=== PATIENT | female | born 1995 | race Caucasian/White ===

== ENCOUNTER 2017-02-04 14:17 | Emergency (ER) | payer OTHER ==
[~2017-02-04] VITALS: Ht 165.1 cm; Wt 99.3 kg
[2017-02-04] MEDS ORDERED: TYLE325T5 PO (14:23)
[2017-02-04] MEDS ORDERED: BUTA1CAP4 PO (14:24)
[2017-02-04] MEDS ORDERED: METOCLOPRAMIDE INJ 10MG/2ML VIAL (J2765) IV ONE (15:00)
[2017-02-04] MEDS ORDERED: NS 1,000 ML IV ONE (15:00)
[2017-02-04] MEDS ORDERED: diphenhydrAMINE INJ 50MG/ML VIAL (J1200) IV ONE (15:00)
[2017-02-04 15:34] LABS: BASO # 0.1 K/mm3 (0.0-0.2); BASO % 0.4 % (0.0-1.0); EOS # 0.4 K/mm3 (0.0-0.50); EOS % 2.4 % (0.0-3.0); LARGE UNSTAINED CELL # 0.1 K/mm3 (0.0-0.4); LARGE UNSTAINED CELL % 0.5 % (0.0-4.0); LYMPH # 1.5 K/mm3 (1.5-6.5); LYMPH % 10.1 % (24.0-44.0); MEAN CORPUSCULAR HEMOGLOBIN 30.4 pg (27.0-33.0); MONO # 0.4 K/mm3 (0.0-0.8); NEUTROPHILS # 12.2 K/mm3 (1.8-7.7); NEUTROPHILS % 83.6 % (36.0-66.0); PLATELET COUNT, AUTOMATED 321 k/mm3 (150-450); WHITE BLOOD COUNT 14.6 K/mm3 (4.0-10.0)
[2017-02-04 15:55] LABS: ALBUMIN 3.2 GM/DL (3.2-5.2); ALBUMIN/GLOBULIN RATIO 0.71 (1.00-1.93); ALKALINE PHOSPHATASE 89 U/L (45-117); ALT/SGPT 30 U/L (12-78); ANION GAP 8 MEQ/L (8-16); AST/SGOT 17 U/L (15-37); BILIRUBIN,DIRECT < 0.1 MG/DL (0.0-0.2); BILIRUBIN,TOTAL 0.4 MG/DL (0.2-1.0); BLOOD UREA NITROGEN 6 MG/DL (7-18); CALCIUM LEVEL 9.3 MG/DL (8.5-10.1); CARBON DIOXIDE LEVEL 24 MEQ/L (21-32); CHLORIDE LEVEL 107 MEQ/L (98-107); CREATININE FOR GFR 0.48 MG/DL (0.55-1.02); GLOMERULAR FILTRATION RATE > 60.0 (>60); GLUCOSE, FASTING 92 MG/DL (70-105); POTASSIUM SERUM 3.4 MEQ/L (3.5-5.1); SODIUM LEVEL 139 MEQ/L (136-145); TOTAL PROTEIN 7.7 GM/DL (6.4-8.2)
[2017-02-04 16:49] VITALS: BP 115/65
== END 2017-02-04 17:04 | disposition home or self-care (01) ==
LOC: M ED 15:51
DX: O99.352 Diseases of the nervous system complicating pregnancy, second trimester (principal); G43.909 Migraine, unspecified, not intractable, without status migrainosus; G93.2 Benign intracranial hypertension; Z3A.16 16 weeks gestation of pregnancy
CPT/HCPCS: 80048; 80076; 85025; 86140; 96374; 96375; 99283; J1200; J2765

== ENCOUNTER → 2017-03-07 | Outpatient (CLI) | payer OTHER ==
[~2017-03-07] MED LIST: ACET50TA PO; ANUS2.5C2 TOP; BUTA1CAP4 PO; COLA100C5 PO; DIBU1OIN TOP; IBUP-1114 PO; LIDOCAINE 1% SDV INJ 30 ML VIAL As Ordered ONE; MOM30SS PO; PRENTAB9 PO; TYLE325T5 PO; diphenhydrAMINE INJ 50MG/ML VIAL (J1200) As Ordered ONE; fentaNYL 100 MCG/2 ML INJECTION (J3010) As Ordered ONE
[2017-03-07 17:48] LABS: GLUCOSE CSF 43 MG/DL (40-75)
[2017-03-07 18:01] LABS: RBC CSF AUTO 1 /mm3 (0-0); WBC CSF AUTO 1 /mm3 (0-10)
[2017-03-07 18:07] LABS: APPEARANCE, CSF CLEAR (CLEAR); COLOR, CSF COLORLESS (COLORLESS); CSF DIFF IF INDICATED? NO (NO); CSF TUBE# CELL CNT TUBE 3
[2017-03-07 18:08] LABS: CSF DILUENT LOT # 6221
[2017-03-08 08:16] LABS: CSF H. INFLUENZA NEGATIVE (NEGATIVE); CSF N MENINGITIDIS ACYW135 NEGATIVE (NEGATIVE); CSF STREP PNUEMO NEGATIVE (NEGATIVE)
[2017-03-08 08:17] LABS: CSF GROUP B STREP NEGATIVE (NEGATIVE)
--- NOTE | 2017-03-22 00:57 | ECWPNPC ---
PATIENT NAME: GABRIELA HEADLEY : 1995 GENDER: FEMALE VISIT DATE: 03/07/2017 DISCHARGE DATE: 03/07/17 1426 VISIT LOCKED DATE TIME: PHYSICIAN: ERIC ZHANG RESOURCE: ERIC ZHANG REASON FOR APPOINTMENT 1. SPINAL TAP PSEUDO TUMOR CURRENT MEDICATIONS NONE ASSESSMENTS PSEUDOTUMOR CEREBRI. TREATMENT OTHERS CLINICAL NOTES: SPINAL TAP - PLEASE SEE MEDITECH. DISPOSITION & COMMUNICATION FOLLOW UP CALL NEEDED F/UP WITH NEUROLOGIST ELECTRONICALLY SIGNED BY ERIC ZHANG MD ON 03/21/2017 AT 04:42 PM EDT DISCLAIMER : THIS IS A VISIT SUMMARY EXTRACTED FROM THE [employer] CHART. IT IS NOT A COPY OF THE [employer] PROGRESS NOTE. MTDD
== END ==
LOC: M PAIN 14:00
PROVIDERS: ATTEND Anesthesiology
DX: G93.2 Benign intracranial hypertension (principal)

== ENCOUNTER 2017-07-23 05:39 | Inpatient (IN) | payer OTHER ==
[~2017-07-23] VITALS: Ht 165.1 cm; Wt 109.0 kg
[2017-07-23] VITALS (35 sets, daily range): BP systolic 109–171; BP diastolic 60–110
[~2017-07-23 05:39] MED LIST changes: -ACET50TA PO; -ANUS2.5C2 TOP; -COLA100C5 PO; -DIBU1OIN TOP; -IBUP-1114 PO; -LIDOCAINE 1% SDV INJ 30 ML VIAL As Ordered ONE; -MOM30SS PO; -PRENTAB9 PO; -diphenhydrAMINE INJ 50MG/ML VIAL (J1200) As Ordered ONE; -fentaNYL 100 MCG/2 ML INJECTION (J3010) As Ordered ONE
[2017-07-23] MEDS ORDERED: LACTATED RINGER'S 1000 ML IV STA (05:56)
[2017-07-23] MEDS ORDERED: AMPICILLIN SOD 2 GM in D5W MINI-BAG PLUS 100 ML IV STA ×2 (05:56→06:39)
--- NOTE | 2017-07-23 06:10 | HPEPDOC ---
Obstetrical History & Physical General Date of Admission 07/23/17 History of Present Illness Ca is a 22yo with SIUP at 40w5d presenting to L&D with regular painful contractions for the last 6 hours. She notes no loss of fluid, feels good movement, no vaginal bleeding. 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 Past Medical History Medical History Pseudotumor cerebri, obesity Surgical History: [place] teeth Family History Significant Family History: No pertinent family hx Social History Marital Status: Family situation: Spouse/partner home Psychosocial History: No pertinent psych hx * Smoker: non-smoker Alcohol: Denies Drugs: denies Imunizations Tdap status: current Influenza Status: current Allergies Coded Allergies: No Known Drug Allergy (Verified Allergy, Unknown, 02/04/17) Medications Scheduled PRN Acetaminophen (Tylenol) 325 Mg Tab, 325 MG PO PRN PRN for PAIN OR FEVER Butalbital/ASA/Caffeine (Butal/ASA/Caff 50-325-40 mg) 1 Ea Cap, 1 EA PO Q4HP PRN for PAIN OR FEVER Physical Examination Physical Examination GENERAL: Alert and oriented times three. BREAST: . ABDOMEN: Gravid and non-tender to touch. FETUS: Is vertex (VTX) by sterile vaginal examination (SVE) HEART RATE: Regular rate and rhythm. LUNGS: Clear to auscultation (CTA). EXTREMITIES: trace edema BLE Pertinent Laboratoy Data Blood Type: O+ RBC Antibody Screen: Negative HIV: Negative Hepatitis B: Negative Hepatitis C: Unknown Rapid Plasma Reagin: Nonreactive Rubella: Immune Varicella: Immune Chlamydia/Gonorrhea: Negative Group B Streptococcus: Negative Cystic Fibrosis: Negative Glucose Tolerance Test: 101 Anatomy Ultrasound Ultrasound Date: Apr 07, 2017 Placenta Location: Posterior Normal Anatomy: Yes Placenta Previa: No Steroid Therapy Steroid Therapy: No Vaginal Examination Dilation: 4 cm Effacement: 80+% Station: -1, 0 Cervical Consistency: Soft Cervical Position: Middle Presentation: Cephalic presentation Assessment Heart Rate (FHR): 130 Variability: Moderate Accelerations: Positive Decelerations: None Tocometer Contractions: Yes Frequency: regular, every 2-5 min. Duration: greater than 60 seconds Strength: palpated as moderate Assessment/Plan Assessment Ca is a 22yo with SIUP at 40w5d in active labor, no ROM, Cat I FHRT with regular ctx, SCE 4/90/-1. First bp elevated, will continue to monitor closely. GBS positive. PMhx significant for pseudotumor cerebri and obesity (normal 1hr glucola) course has been uncomplicated Plan Admit and orient. Interventional Neuroradiologist and consent. Diet: clear liquids Group B Streptococcus (GBS) positive: ampicillin per protocol Labs and intravenous (IV) per unit protocol. Lactated Ringers (LR): Bolus 1000 mL, then at 125 mL/hr. Anticipate normal spontaneous delivery () C-S as appropriate. Dr. Kellen Muir ([facility]), KELLEN CUEVAS MD Jul 23, 2017 06:10
[2017-07-23 06:39] LABS: MEAN CORPUSCULAR HEMOGLOBIN 29.5 pg (27.0-33.0); MEAN CORPUSCULAR HGB CONC 35.6 g/dl (32.0-36.5); MEAN CORPUSCULAR VOLUME 82.9 fl (80.0-96.0); PLATELET COUNT, AUTOMATED 266 10^3/uL (150-450); RED CELL DISTRIBUTION WIDTH 13.7 % (11.5-14.5); WHITE BLOOD COUNT 12.9 10^3/uL (4.0-10.0)
[2017-07-23] MEDS ORDERED: FENTANYL 2MCG/ML ROPIVACAINE 0.2% IN 0.9% NACL 200ML IVBAG As Ordered ONE (07:33)
[2017-07-23] MEDS: LR 1,000 ML IV SCH ×2 (08:21→17:13)
[2017-07-23] MEDS ORDERED: ePHEDrine SULFATE 25 MG/5 ML(5MG/ML) SYRINGE IV PRN (09:00)
[2017-07-23] MEDS ORDERED: REFRIGERATOR IV KEYS XX PRN (09:00)
[2017-07-23] MEDS ORDERED: EPIDURAL COMMENT XX SCH (09:00)
[2017-07-23] MEDS ORDERED: ONDANSETRON 4MG/2ML VIAL (J2405) IV PRN (09:00)
[2017-07-23] MEDS ORDERED: FENTANYL/ROPIVACAINE/NACL BAG 200 ML EPIDURAL SCH (09:00)
[2017-07-23] MEDS ORDERED: NALOXONE INJ 0.4 MG/1 ML VIAL (J2310) IV PRN (09:00)
[2017-07-23] MEDS ORDERED: EPIDURAL/PCA KEYS XX PRN (09:00)
[2017-07-23] MEDS ORDERED: diphenhydrAMINE INJ 50MG/ML VIAL (J1200) IV PRN (09:00)
[2017-07-23] MEDS: AMPICILLIN SOD 1 GM in D5W 50 ML IV SCH ×2 (11:12→16:34)
[2017-07-23] MEDS ORDERED: OXYTOCIN 30 UNITS IN 0.9% NaCl 500ML IV BAG (J2590) As Ordered ONE (12:35)
[2017-07-23] MEDS ORDERED: OXYTOCIN DRIP 30 UNITS in APPROPRIATE DILUENT 1 EA IV SCH (12:45)
[2017-07-23 20:40] LABS: CORD GAS ABE A -3.9; CORD GAS HCO3 A 24.4 MEQ/L; CORD GAS O2 SAT A 26.7 %; CORD GAS PCO2 A 56.6 mmHg; CORD GAS PH A 7.253 UNITS; CORD GAS PO2 A 15.8 mmHg; CORD GAS SBC A 19.4 MEQ/L; CORD GAS TCO2 A 26.2 MEQ/L
[2017-07-23 20:42] LABS: CORD GAS ABE V -2.7; CORD GAS HCO3 V 18.8 MEQ/L; CORD GAS O2 SAT V 79.3 %; CORD GAS PCO2 V 26.2 mmHg; CORD GAS PH V 7.473 UNITS; CORD GAS PO2 V 31.6 mmHg; CORD GAS SBC V 21.8 MEQ/L; CORD GAS TCO2 V 19.6 MEQ/L
[2017-07-23] MEDS ORDERED: DOCUSATE SODIUM 100 MG CAP PO PRN (21:15)
[2017-07-23] MEDS ORDERED: MEASLES,MUMPS,RUBELLA VACCINE INJ (MMR-II) (90707) SC SCH (21:15)
[2017-07-23] MEDS ORDERED: METHYLERGONOVINE MALEATE 0.2 MG TAB PO PRN (21:15)
[2017-07-23] MEDS ORDERED: ANUSOL HC CREAM 30GM TOP PRN (21:15)
[2017-07-23] MEDS ORDERED: RHOGAM 300 MCG (1500 IU) INJ (J2790) IM SCH (21:15)
[2017-07-23] MEDS ORDERED: MOM 30ML SUSPENSION UDC PO PRN (21:15)
[2017-07-23] MEDS ORDERED: DIBUCAINE 1% OINTMENT 30GM TOP PRN (21:15)
[2017-07-23] MEDS: IBUPROFEN 800 MG TAB PO PRN (22:42)
[2017-07-24] MEDS ORDERED: OXYTOCIN INJ 10 UNITS/ML VIAL (J2590) As Ordered ONE (00:32)
[2017-07-24] MEDS: ACETAMINOPHEN 500 MG TAB PO PRN ×2 (04:57→13:43)
[2017-07-24 05:56] VITALS: BP 121/64
[2017-07-24 06:48] LABS: MEAN CORPUSCULAR HEMOGLOBIN 29.1 pg (27.0-33.0); MEAN CORPUSCULAR VOLUME 85.6 fl (80.0-96.0); PLATELET COUNT, AUTOMATED 293 10^3/uL (150-450); RED CELL DISTRIBUTION WIDTH 13.8 % (11.5-14.5); WHITE BLOOD COUNT 14.4 10^3/uL (4.0-10.0)
[2017-07-24] MEDS: PRENATAL VITAMINS CHEWABLE TABLET PO SCH (08:28)
[2017-07-24] MEDS: IBUPROFEN 800 MG TAB PO PRN ×2 (08:29→17:41)
--- NOTE | 2017-07-24 09:17 | DN ---
DATE OF SERVICE: 07/23/2017 This lady is a 1, para 0, was admitted in active labor, had an epidural in place, full dilatation, delivered over intact perineum a live female infant weighing 7 pounds 15 ounces, 3590 grams, scores of 9 and 9 at one and five minutes respectively. Cord around the neck once loose. She had terminal meconium at delivery. Placenta delivered spontaneously thereafter. Membranes were stained with meconium. Three-vessel membranes and tissues intact. Examination of the entire vagina cavity was normal. The sphincter was tight and intact. She just had a small blood vessel in the right hand side oversewn with a [id number] to control bleeding. The uterus contracted well down on Pitocin. The patient and baby tolerating procedure well.
--- NOTE | 2017-07-24 09:18 | IPN ---
DATE: 07/24/2017 day #1. This lady is a 22-year-old 1, now para 1, admitted in spontaneous labor, had a spontaneous vaginal delivery, live female infant, 7 pounds 15 ounces, 3590 grams, score of 9 and 9 at one and five minutes respectively. Cord times once, loose. Arterial pH 7.25, venous pH 7.40, base excess -2.7. She was GBS negative. On exam today, we discussed phlebitis, cystitis, mastitis, endometritis and cellulitis, diet, exercise pain management, perineal, breast and wound care. Blood pressure 121/64, respirations 18, pulse 100 and temperature is 99.6. Admitting hemoglobin was 13.8, hematocrit 38.8 and platelets were 266. day #1 hemoglobin 13.1, hematocrit 38.5, and platelets are 293. In summary, we have a term gestation, delivered a live female infant, planning on discharge with release of the baby and medications will be given at discharge. She is expecting to start oral contraceptives at her 6-week checkup. Copy To: Mae MENA
[2017-07-24 18:13] VITALS: BP 140/90
[2017-07-25 06:00] VITALS: BP 141/84
[2017-07-25] MEDS: IBUPROFEN 800 MG TAB PO PRN (08:12)
[2017-07-25] MEDS: PRENATAL VITAMINS CHEWABLE TABLET PO SCH (08:12)
--- NOTE | 2017-07-25 09:00 | DSES ---
DATE OF ADMISSION: 07/25/2017 DATE OF DISCHARGE: This lady is a 22-year-old 1, now para 1 admitted in spontaneous labor. Had a spontaneous vaginal delivery of a live female with epidural, weighing 7 pounds 15 ounces, 3590 grams, scores of 9 and 9 at 1 and 5 minutes, respectively. Cord times one around the neck. Arterial pH was 7.25, base excess -3.9, venous pH 7.4, base excess -2.7. Admitting hemoglobin 13.8, hematocrit 38.8 and platelets are 266. Discharge hemoglobin 13.1, hematocrit 38.5 and platelets are 293. Vital signs on discharge: Blood pressure 141/84, respirations 18, pulse 84, temperature 99.1. We discussed phlebitis, cystitis, mastitis, endometritis and cellulitis, diet, exercise, pain management, perineal, breast and wound care. She is requesting oral contraceptive method of control. She was given a prescription for Nor-Q to be started 6 weeks . Has a 6-week check with [facility]. In summary, we have a term gestation, delivered a live female , discharged improved.
[2017-07-25] MEDS ORDERED: ACET50TA PO (09:36)
[2017-07-25] MEDS ORDERED: COLA100C5 PO (09:36)
[2017-07-25] MEDS ORDERED: IBUP-1114 PO (09:36)
[2017-07-25] MEDS ORDERED: PRENTAB9 PO (09:36)
[2017-07-25] MEDS ORDERED: ANUS2.5C2 TOP (09:37)
[2017-07-25] MEDS ORDERED: DIBU1OIN TOP (09:37)
[2017-07-25] MEDS ORDERED: MOM30SS PO (09:37)
== END 2017-07-25 11:00 | disposition home or self-care (01) | DRG 775 ==
LOC: M LDO 05:39 → M LDI 06:20 → M OBS 22:30
PROVIDERS: ADMIT Obstetrics & Gynecology; ATTEND Obstetrics & Gynecology
PROC: 10E0XZZ Delivery of Products of Conception, External Approach (ICD-10-PCS; principal; 2017-07-23)
PROC: 10907ZC Drainage of Amniotic Fluid, Therapeutic from Products of Conception, Via Natural or Artificial Opening (ICD-10-PCS; 2017-07-23)
DX: O48.0 Post-term pregnancy (principal); O99.214 Obesity complicating childbirth; Z3A.40 40 weeks gestation of pregnancy; E66.9 Obesity, unspecified; Z68.38 Body mass index [BMI] 38.0-38.9, adult; O99.824 Streptococcus B carrier state complicating childbirth; O69.81X0 Labor and delivery complicated by cord around neck, without compression, not applicable or unspecified; Z37.0 Single live birth

== ENCOUNTER 2017-11-14 12:18 | Observation (INO) | payer OTHER ==
[2017-11-14] MEDS: METOCLOPRAMIDE INJ 10MG/2ML VIAL (J2765) IV (13:30)
[2017-11-14 14:07] LABS: BASO # 0.1 10^3/uL (0.0-0.2); BASO % 1.2 % (0.0-1.0); EOS # 0.2 10^3/uL (0.0-0.50); EOS % 2.6 % (0.0-3.0); HEMATOCRIT 43.7 % (36.0-47.0); HEMOGLOBIN 15.1 g/dl (12.0-16.0); LYMPH # 1.4 10^3/uL (1.5-6.5); LYMPH % 20.7 % (24.0-44.0); MEAN CORPUSCULAR HEMOGLOBIN 29.4 pg (27.0-33.0); MEAN CORPUSCULAR HGB CONC 34.6 g/dl (32.0-36.5); MONO # 0.9 10^3/uL (0.0-0.8); MONO % 13.7 % (0.0-5.0); NEUTROPHILS # 4.1 10^3/uL (1.8-7.7); NEUTROPHILS % 60.8 % (36.0-66.0); PLATELET COUNT, AUTOMATED 361 10^3/uL (150-450); RED BLOOD COUNT 5.14 10^6/uL (4.00-5.40); RED CELL DISTRIBUTION WIDTH 12.7 % (11.5-14.5); WHITE BLOOD COUNT 6.8 10^3/uL (4.0-10.0)
[2017-11-14 14:40] LABS: ANION GAP 10 MEQ/L (8-16); BLOOD UREA NITROGEN 10 MG/DL (7-18); CALCIUM LEVEL 8.7 MG/DL (8.5-10.1); CARBON DIOXIDE LEVEL 24 MEQ/L (21-32); CHLORIDE LEVEL 107 MEQ/L (98-107); CREATININE FOR GFR 0.57 MG/DL (0.55-1.30); GLOMERULAR FILTRATION RATE > 60.0 (>60); GLUCOSE, FASTING 76 MG/DL (70-100); POTASSIUM SERUM 3.6 MEQ/L (3.5-5.1); SODIUM LEVEL 141 MEQ/L (136-145)
[2017-11-14] MEDS: methylPREDNISolone INJ 125 MG/2 ML VIAL (J2930) IV (17:15)
[2017-11-14] MEDS: MORPHINE 4 MG/ML 1ML VIAL (J2270) IV (17:15)
[2017-11-14] MEDS ORDERED: ONDANSETRON 4MG/2ML VIAL (J2405) IV (18:45)
[2017-11-14] MEDS ORDERED: MORPHINE 4 MG/ML 1ML VIAL (J2270) IV (18:45)
[2017-11-14] MEDS: KETOROLAC 30 MG/ML VIAL (J1885) IV (18:58)
[2017-11-14] MEDS ORDERED: PROHANCE 279.3MG/ML 15ML VIAL (A9576) As Ordered (20:07)
[2017-11-14] MEDS ORDERED: PROHANCE 279.3MG/ML 5ML VIAL (A9576) As Ordered (20:08)
[2017-11-14] MEDS: NORTRIPTYLINE 25 MG CAP PO (21:02)
[2017-11-15 06:03] LABS: HEMATOCRIT 44.5 % (36.0-47.0); HEMOGLOBIN 15.4 g/dl (12.0-16.0); MEAN CORPUSCULAR HEMOGLOBIN 29.5 pg (27.0-33.0); MEAN CORPUSCULAR HGB CONC 34.6 g/dl (32.0-36.5); MEAN CORPUSCULAR VOLUME 85.2 fl (80.0-96.0); PLATELET COUNT, AUTOMATED 410 10^3/uL (150-450); RED BLOOD COUNT 5.22 10^6/uL (4.00-5.40); RED CELL DISTRIBUTION WIDTH 12.5 % (11.5-14.5); WHITE BLOOD COUNT 8.7 10^3/uL (4.0-10.0)
[2017-11-15 06:16] LABS: ANION GAP 8 MEQ/L (8-16); BLOOD UREA NITROGEN 16 MG/DL (7-18); CALCIUM LEVEL 9.2 MG/DL (8.5-10.1); CARBON DIOXIDE LEVEL 26 MEQ/L (21-32); CHLORIDE LEVEL 106 MEQ/L (98-107); CREATININE FOR GFR 0.64 MG/DL (0.55-1.30); GLOMERULAR FILTRATION RATE > 60.0 (>60); GLUCOSE, FASTING 127 MG/DL (70-100); MAGNESIUM LEVEL 1.9 MG/DL (1.8-2.4); POTASSIUM SERUM 4.2 MEQ/L (3.5-5.1); SODIUM LEVEL 140 MEQ/L (136-145)
[2017-11-15] MEDS: INFLUENZA QUADRIVALENT PF VACCINE 0.5ML SYRINGE (90686) IM (10:07)
[2017-11-15] MEDS: ACETAMINOPHEN TAB 650MG DOSE (2X325MG) PO (10:23)
[2017-11-15] MEDS: PRENATAL VITAMINS CHEWABLE TABLET PO (10:23)
== END 2017-11-15 12:52 | disposition home or self-care (01) ==
LOC: M ED 12:18 → M ED INP 19:05 → M PCU 19:41
DX: R51 Headache (principal); R42 Dizziness and giddiness; G93.2 Benign intracranial hypertension
CPT/HCPCS: J2270

== ENCOUNTER 2018-04-01 11:56 | Emergency (ER) | payer OTHER ==
[2018-04-01 13:30] LABS: HEMATOCRIT 39.3 % (36.0-47.0); HEMOGLOBIN 13.8 g/dl (12.0-15.5); MEAN CORPUSCULAR HEMOGLOBIN 29.6 pg (27.0-33.0); MEAN CORPUSCULAR HGB CONC 35.1 g/dl (32.0-36.5); MEAN CORPUSCULAR VOLUME 84.2 fl (80.0-96.0); PLATELET COUNT, AUTOMATED 321 10^3/uL (150-450); RED BLOOD COUNT 4.67 10^6/uL (4.00-5.40); RED CELL DISTRIBUTION WIDTH 12.5 % (11.5-14.5); WHITE BLOOD COUNT 9.8 10^3/uL (4.0-10.0)
[2018-04-01 14:09] LABS: HCG, SERUM QUANTITATIVE 66410 MIU/ML
== END 2018-04-01 15:55 | disposition home or self-care (01) ==
LOC: M ED 11:56
DX: O20.0 Threatened abortion (principal); O20.8 Other hemorrhage in early pregnancy; Z3A.12 12 weeks gestation of pregnancy; Z79.899 Other long term (current) drug therapy; Z91.89 Other specified personal risk factors, not elsewhere classified
CPT/HCPCS: 76801

== ENCOUNTER → 2018-08-15 | Outpatient (CLI) | payer OTHER | LOC: M RAD 12:35 | DX: Z36.89 Encounter for other specified antenatal screening (principal); Z3A.32 32 weeks gestation of pregnancy | CPT/HCPCS: 76820 ==

== ENCOUNTER 2018-09-15 11:50 | Outpatient (CLI) | payer OTHER ==
[~2018-09-15] VITALS: Ht 165.1 cm; Wt 107.0 kg
[~2018-09-15 11:50] MED LIST changes: +ACET65SU PO; +ANUS2.5C2 TOP; +COLA100C5 PO; +DIBU1OIN TOP; +FIOR1CAP PO; +IBUP-1114 PO; +MAPA500T17 PO; +MOM30SS PO; +NORT25CA2 PO; +PRENCHW PO; +PRENTAB9 PO; +magnesium oxide PO
[2018-09-15 12:09] VITALS: BP 116/66
--- NOTE | 2018-09-15 12:43 | IPNPDOC ---
Text Note Date of Service The patient was seen on 09/15/18. NOTE 23 yo at 36+4 weeks presents to L&D with the complaint of vaginal pressure over the last couple days that has been significantly worsening. She denies any bleeding or leakage of fluid. She does endorse discharge but she reports having intercourse last night. She endorses excellent movement. Chaperoned by L&D RN Vitals - VSS, normotensive, afebrile, non tachycardic General - AAOX3, laying in bed, NAD Abdomen - Gravid uterus, no fundal tenderness Cervix - FT/Thick/High FHR tracing: Reactive NST Patient not in labor and status reassuring. Recommend pelvic rest for one week. She has follow up scheduled for Tuesday in the OBGYN clinic. Return to care sooner for any urgent concerns. All patient questions answered. DO VIKI Ward CHRISTOPHER J. DO Sep 15, 2018 12:43
== END 2018-09-15 12:40 | disposition home or self-care (01) ==
LOC: M LDO 11:50
PROVIDERS: ATTEND Obstetrics & Gynecology
DX: O99.89 Other specified diseases and conditions complicating pregnancy, childbirth and the puerperium (principal); R10.2 Pelvic and perineal pain; Z3A.36 36 weeks gestation of pregnancy
CPT/HCPCS: 59025; G0378; G0463

== ENCOUNTER 2018-10-05 06:25 | Inpatient (IN) | payer OTHER ==
[2018-10-05] VITALS (29 sets, daily range): BP systolic 92–137; BP diastolic 48–77
[~2018-10-05] VITALS: Ht 165.1 cm; Wt 111.0 kg
[2018-10-05] MEDS ORDERED: LACTATED RINGER'S 1000 ML IV STA (07:57)
[2018-10-05] MEDS ORDERED: PENICILLIN G POTASSIUM IV 5 MU in D5W MINI-BAG PLUS 100 ML IV STA ×2 (07:57→17:00)
[2018-10-05] MEDS ORDERED: miSOPROStol 25 MCG 1/4 TAB (S0191) PV ONE (08:00)
[2018-10-05 08:23] LABS: HEMATOCRIT 38.4 % (36.0-47.0); HEMOGLOBIN 12.9 g/dl (12.0-15.5); MEAN CORPUSCULAR HEMOGLOBIN 28.8 pg (27.0-33.0); MEAN CORPUSCULAR HGB CONC 33.6 g/dl (32.0-36.5); MEAN CORPUSCULAR VOLUME 85.7 fl (80.0-96.0); PLATELET COUNT, AUTOMATED 300 10^3/uL (150-450); RED BLOOD COUNT 4.48 10^6/uL (4.00-5.40); WHITE BLOOD COUNT 10.7 10^3/uL (4.0-10.0)
[2018-10-05] MEDS ORDERED: BUTORPHANOL 2 MG/ML INJ (J0595) IV PRN (08:30)
--- NOTE | 2018-10-05 08:44 | HPEPDOC ---
Obstetrical History & Physical General Date of Admission Oct 05, 2018 at 06:25 History of Present Illness Ca is a 23yo with SIUP at 39w1d who presents today for scheduled IOL indicated for morbid obesity, starting BMI 40.8. She feels well, no complaints. No LOF/vaginal bleeding/regular ctx. She feels good movement. No n/v/f/c. Chief Complaint: Induction of labor Information Provided By: Patient Care Care: Good Care Dating Final EDC: Oct 11, 2018 Final EDC by: LMP, 1st trimester (US) Antepartum Course Diagnos(e)s Originally had mono-di twin but had early demise of twin B. Pseudo- tumor cerebri, sees neurology prn, but not taking any medications. 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 Past Medical History Medical History Pseudo-tumor cerebri on no meds, starting BMI 40.8 Surgical History: Denies/None Family History Significant Family History: No pertinent family hx Social History Marital Status: Family situation: Spouse/partner home Psychosocial History: No pertinent psych hx * Smoker: non-smoker Alcohol: Denies Drugs: denies Imunizations Tdap status: current Influenza Status: current Allergies Coded Allergies: Nickel (Verified Allergy, Unknown, 10/05/18) Medications Scheduled Multivitamins/ ( 19) 1 Chw Chw, 1 TAB PO DAILY Physical Examination Physical Examination GENERAL: Alert and oriented times three. ABDOMEN: Gravid and non-tender to touch. FETUS: Is vertex (VTX) by sterile vaginal examination (SVE) and TAUS EXTREMITIES: trace pedal edema bilat Vital Signs/I&O Vital Signs Date Time Temp Pulse Resp B/P (MAP) Pulse Ox O2 Delivery O2 Flow Rate FiO2 10/05/18 06:45 97.3 114 129/67 (87) Laboratory Data [facility]H [facility] Laboratory Tests 2 10/05/18 06:33: Serology Scanned Report Hepatitis B Testing Pertinent Laboratoy Data Blood Type: O+ RBC Antibody Screen: Negative HIV: Negative Hepatitis B: Negative Hepatitis C: Unknown Rapid Plasma Reagin: Nonreactive Rubella: Immune Varicella: Immune Chlamydia/Gonorrhea: Negative Group B Streptococcus: Positive Cystic Fibrosis: Negative Glucose Tolerance Test: 129 Anatomy Ultrasound Ultrasound Date: May 24, 2018 Placenta Location: Anterior (marginal cord insertion) Normal Anatomy: Yes Placenta Previa: No Other Ultrasounds 08/15/, 32wk: >97%ile Steroid Therapy Steroid Therapy: No Vaginal Examination Dilation: 1cm Effacement: 50% Station: -3 Cervical Consistency: Medium Cervical Position: Posterior Presentation: Cephalic presentation Assessment Heart Rate (FHR): 130 Variability: Moderate Accelerations: Positive Decelerations: None Tocometer Contractions: No Assessment/Plan Assessment Ca is a 23yo with SIUP at 39w1d who presents today for scheduled IOL indicated for morbid obesity, starting BMI 40.8. Vitals wnl, benign exam. GBS positive. Cephalic by SCE and TAUS. Cat I FHRT with very rare ctx. SCE /-. Cervical rabago bulb placed without issue as well as 25mcg PV cytotec. PMhx significant for: starting BMI 40.8 (but lost 4lb over rather than gaining weight), pseudo-tumor cerebri on no meds. PNC significant for starting as mono-di gestation but early demise of twin B. Plan Admit and orient. 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 Diet: clear liquids Group B Streptococcus (GBS) positive: PCN in active labor per protocol Labs and intravenous (IV) per unit protocol. Counseled on cytotec, rabago bulb, Pitocin and induction of labor (IOL). Lactated Ringers (LR): Bolus 1000 mL, then at 125 mL/hr. SCDs ordered Anticipate normal spontaneous delivery () Candidate for epidural in active labor, 2mg IV stadol q4hr prn in latent labor MD Rivka Grewal Katrina D MD Oct 05, 2018 08:44
[2018-10-05] MEDS ORDERED: miSOPROStol 50 MCG 1/2 TAB (S0191) PO SCH (09:00)
[2018-10-05] MEDS: LR 1,000 ML IV SCH ×2 (09:27→16:23)
[2018-10-05] MEDS ORDERED: PENICILLIN G POTASSIUM IV 2.5 MU in APPROPRIATE DILUENT 1 EA IV SCH ×2 (12:00→21:00)
[2018-10-05] MEDS ORDERED: OXYTOCIN DRIP 30 UNITS in APPROPRIATE DILUENT 1 EA IV SCH (17:00)
--- NOTE | 2018-10-05 17:02 | IPNPDOC ---
Text Note Date of Service The patient was seen on 10/05/18. NOTE Intrapartum Note Patient doing well. Has been sitting up in chair, now feeling ctx as regular and uncomfortable. Wilson bulb fell out about 2hr after placement and she received t he initial dose of cytotec 25mcg PV and then 4 hours after that, 50mcg PO. She is now due for 3rd dose or switch to pitocin. 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 Deneen Tineo MD VS,Joe, I+O VS, Joe, I+O Laboratory Tests 10/05/18 08:12 Red Blood Count 4.48, Mean Corpuscular Volume 85.7, Mean Corpuscular Hemoglobin 28.8, Mean Corpuscular Hemoglobin Concent 33.6, Red Cell Distribution Width 13.9 Vital Signs Date Time Temp Pulse Resp B/P (MAP) Pulse Ox O2 Delivery O2 Flow Rate FiO2 10/05/18 15:20 90 18 111/59 (76) 10/05/18 13:38 99.2 Deneen Tineo MD Oct 05, 2018 17:02
[2018-10-05] MEDS ORDERED: FENTANYL 2MCG/ML ROPIVACAINE 0.2% IN 0.9% NACL 100ML IVBAG As Ordered ONE (20:45)
[2018-10-05] MEDS ORDERED: ONDANSETRON 4MG/2ML VIAL (J2405) As Ordered ONE (21:58)
[2018-10-05] MEDS ORDERED: FENTANYL/ROPIVACAINE/NACL BAG 100 ML EPIDURAL SCH (22:15)
[2018-10-05] MEDS ORDERED: EPIDURAL/PCA KEYS XX PRN (22:15)
[2018-10-05] MEDS ORDERED: diphenhydrAMINE INJ 50MG/ML VIAL (J1200) IV PRN (22:15)
[2018-10-05] MEDS ORDERED: LACTATED RINGER'S 1000 ML IV PRN (22:15)
[2018-10-05] MEDS ORDERED: ONDANSETRON 4MG/2ML VIAL (J2405) IV PRN (22:15)
[2018-10-05] MEDS ORDERED: EPIDURAL COMMENT XX SCH (22:15)
[2018-10-05] MEDS ORDERED: ePHEDrine SULFATE 25 MG/5 ML(5MG/ML) SYRINGE IV PRN (22:15)
[2018-10-05] MEDS ORDERED: REFRIGERATOR IV KEYS XX PRN (22:15)
[2018-10-05] MEDS ORDERED: NALOXONE INJ 0.4 MG/1 ML VIAL (J2310) IV PRN (22:15)
[2018-10-06] MEDS: LR 1,000 ML IV SCH
[2018-10-06 00:01] VITALS: BP 119/56
[2018-10-06 00:16] VITALS: BP 116/57
[2018-10-06] MEDS ORDERED: OXYTOCIN DRIP 30 UNITS in APPROPRIATE DILUENT 1 EA IV SCH (00:16)
--- NOTE | 2018-10-06 00:24 | DNPDOC ---
[facility] Delivery Note Delivery Note DATE OF DELIVERY: 05 October 2018 PREDELIVERY DIAGNOSIS: 39w2d induction of labor for Class 3 obesity POST DELIVERY DIAGNOSIS: Delivered. PROCEDURE: Spontaneous vaginal delivery DIGESTER OPERATOR HELPER: Dr. Deneen Tineo MD ANESTHESIA: epidural ESTIMATED BLOOD LOSS: 300 mL. FINDINGS: 9 pound 1 ounce (4120g) male , Score 8/9 DELIVERY SUMMARY: Ca is a 23yo [id number] s/p uncomplicated at 39w2d after undergoing IOL indicated for Class 3 obesity, starting BMI 40.8. Delivery occurred at 23:52 on 10/05/2018. Induction was started with cytotec and rabago bulb, she eventually received pitocin and had epidural placed. She had spontaneous ROM and progressed to C/C/+1 at which point she began pushing. 's head delivered OA, restituted KELSEY. Right anterior shoulder delivered followed by posterior shoulder and corpus. Infant vigorous with spontaneous cry, placed on maternal abdomen. Nose and mouth suctioned with bulb suction. After approx. 2 minutes, cord was clamped x2 and cut by FOB. Cord blood obtained for MBT O pos. With uterine massage and traction on the cord, placenta delivered spontaneously and intact with marginally inserted 3 vessel cord. Bimanual massage performed and pitocin given per protocol- uterine fundus then firm at u-2cm. Inspection of perineum and vagina revealed small superficial abrasions, 3 of which were reapproximated with figure of 8s using 4-0 vicryl suture. Total hemostasis noted. 800mcg cytotec placed rectally for prophylaxis against future bleeding. Mom and infant were doing well when I left the room. MD Rivka Grewal Katrina D MD Oct 06, 2018 00:24
[2018-10-06] MEDS ORDERED: miSOPROStol 200 MCG TAB (S0191) PR ONE (00:30)
[2018-10-06] MEDS ORDERED: MEASLES,MUMPS,RUBELLA VACCINE INJ (MMR-II) (90707) SC SCH (00:30)
[2018-10-06] MEDS ORDERED: DOCUSATE SODIUM 100 MG CAP PO PRN (00:30)
[2018-10-06] MEDS ORDERED: DIBUCAINE 1% OINTMENT 30GM TOP PRN (00:30)
[2018-10-06] MEDS ORDERED: RHOGAM 300 MCG (1500 IU) INJ (J2790) IM SCH (00:30)
[2018-10-06 00:31] VITALS: BP 131/61
[2018-10-06 00:46] VITALS: BP 123/56
[2018-10-06] MEDS: ACETAMINOPHEN 500 MG TAB PO PRN ×4 (00:53→20:14)
[2018-10-06] MEDS: IBUPROFEN 800 MG TAB PO PRN ×3 (02:03→20:14)
[2018-10-06 05:44] VITALS: BP 126/59
[2018-10-06] MEDS: PRENATAL VITAMINS CHEWABLE TABLET PO SCH (08:13)
[2018-10-06 18:00] VITALS: BP 116/59
[2018-10-07] MEDS: ACETAMINOPHEN 500 MG TAB PO PRN (02:32)
[2018-10-07] MEDS: IBUPROFEN 800 MG TAB PO PRN (05:08)
[2018-10-07 05:44] VITALS: BP 113/64
[2018-10-07] MEDS: PRENATAL VITAMINS CHEWABLE TABLET PO SCH (08:35)
--- NOTE | 2018-10-07 08:43 | IPNPDOC ---
Text Note Date of Service The patient was seen on 10/07/18. NOTE PPD1 States feeling well, pain controlled with prescribed meds. Baby bonding and feeding well. No heavy VB. Lochia slowing. Ambulating and voiding well. Tolerating PO without issues. VSSAF NAD A&O RRR CTAB LE no C/C/E Ut at U-2, firm a/p: Doing well. Cont routine care. D/C today. Sessions VS,Joe, I+O VSJoe, I+O Vital Signs Date Time Temp Pulse Resp B/P (MAP) Pulse Ox O2 Delivery O2 Flow Rate FiO2 10/07/18 05:44 98.2 86 18 113/64 (80) SESSIONS,ANABELL Champion MD Oct 07, 2018 08:43
--- NOTE | 2018-10-07 08:45 | DS.PDOC ---
Discharge Summary General Date of Admission Oct 05, 2018 at 06:25 Date of Discharge 07oct2018 Discharge Summary ADMITTING DIAGNOSES: Induction for obesity DISCHARGE DIAGNOSES: Same, HOSPITAL COURSE: Admitted and delivery uncomplicated, . course uncomplicated. DISCHARGE MEDICATIONS: Motrin, Lanolin DISCHARGE INSTRUCTIONS: Nothing in the vagina for 6 weeks. F/U in OBGYN clinic in 6-8 weeks. Sessions Vital Signs/I&Os Vital Signs Date Time Temp Pulse Resp B/P (MAP) Pulse Ox O2 Delivery O2 Flow Rate FiO2 10/07/18 05:44 98.2 86 18 113/64 (80) Discharge Medications Scheduled Multivitamins/ ( ) 1 Chw Chw, 1 TAB PO DAILY, (Reported) Allergies Coded Allergies: Nickel (Verified Allergy, Unknown, 10/05/18) SESSIONS,ANABELL Champion MD Oct 07, 2018 08:45
[2018-10-07] MEDS ORDERED: IBUP-1114 PO (09:15)
[2018-10-07] MEDS ORDERED: MAPA500T17 PO (09:15)
== END 2018-10-07 11:45 | disposition home or self-care (01) | DRG 806 ==
LOC: M LDI 06:25 → M OBS 10-06 03:02
PROVIDERS: ADMIT Obstetrics & Gynecology; ATTEND Obstetrics & Gynecology
PROC: 10E0XZZ Delivery of Products of Conception, External Approach (ICD-10-PCS; principal; 2018-10-05)
PROC: 3E0P7GC Introduction of Other Therapeutic Substance into Female Reproductive, Via Natural or Artificial Opening (ICD-10-PCS; 2018-10-05)
DX: O99.214 Obesity complicating childbirth (principal); Z37.0 Single live birth; Z68.41 Body mass index [BMI] 40.0-44.9, adult; E66.9 Obesity, unspecified; O99.824 Streptococcus B carrier state complicating childbirth; Z3A.39 39 weeks gestation of pregnancy